=== PATIENT | female | born 1940 | race Caucasian/White ===

== ENCOUNTER 2016-07-06 11:58 | Emergency (ER) | payer OTHER ==
[~2016-07-06] VITALS: Ht 147.3 cm; Wt 36.3 kg
[2016-07-06 12:00] VITALS: BP 127/64
[2016-07-06] MEDS ORDERED: NACL 0.9% 1,000 ML IV SCH (12:04)
[2016-07-06] MEDS ORDERED: ONDANSETRON 4 MG/2 ML VIAL IVP ONE (12:05)
--- NOTE | 2016-07-06 12:14 | NUR ---
Patient ambulated to bed 04.
[2016-07-06 12:26] LABS: BASOPHILS # (AUTO) 0.2 K/uL (0.00-0.22); BASOPHILS % (AUTO) 1.9 % (0.0-2.0); EOSINOPHILS # (AUTO) 0.3 K/uL (0-0.4); EOSINOPHILS % (AUTO) 3.8 % (0.0-4.0); HEMATOCRIT 45.9 % (36-48); HEMOGLOBIN 15.1 g/dL (12.0-16.0); LYMPHOCYTES # (AUTO) 1.7 K/uL (2.5-16.5); LYMPHOCYTES % (AUTO) 19.6 % (20.5-51.1); MEAN CORPUSCULAR HEMOGLOBIN 30 pg (27-31); MEAN CORPUSCULAR HGB CONC 33 g/dL (33-37); MEAN CORPUSCULAR VOLUME 92 fL (80-94); MONOCYTES # (AUTO) 0.7 K/uL (0.8-1.0); MONOCYTES % (AUTO) 8.5 % (1.7-9.3); NEUTROPHILS # (AUTO) 5.9 K/uL (1.8-7.7); NEUTROPHILS % (AUTO) 66.2 % (42.2-75.2); PLATELET COUNT (AUTO) 230 K/uL (140-450); RED BLOOD CELL COUNT(AUTO) 4.97 MIL/uL (4.20-5.40); RED CELL DISTRIBUTION WIDTH 12.1 % (11.6-13.7); WHITE BLOOD COUNT (AUTO) 8.8 K/uL (4.8-10.8)
[2016-07-06 12:30] LABS: BILIRUBIN,URINE NEGATIVE (NEGATIVE); COLOR,URINE YELLOW (YELLOW); LEUKOCYTE ESTERASE ,URINE TRACE (NEGATIVE); NITRITE, URINE NEGATIVE (NEGATIVE); PROTEIN,URINE TRACE (NEGATIVE); UGLUCOSE NEGATIVE (NEGATIVE)
--- NOTE | 2016-07-06 12:37 | NUR ---
76/F TO ED WITH C/O CHEST PRESSURE X1 WEEK WITH ABD PAIN, NAUSEA AND VOMITING. DENIES DIARRHEA. DENIES SOB. CHEST PAIN IS NON RADAITING. PAIN 9/10. LUNGS CLEAR BILAT. HR EVEN AND REGUALR. AAOX4. VSS. NO SIGNS OF DISTRESS.
--- NOTE | 2016-07-06 12:39 | NUR ---
Dr. Shay evaluating patient at bedside.
[2016-07-06 12:45] LABS: ALANINE AMINOTRANSFERASE 22 U/L (12-78); ALBUMIN 3.8 g/dL (3.4-5.0); ALKALINE PHOSPHATASE 71 U/L (46-116); AMYLASE 58 U/L (25-115); ANION GAP 10.8 (8-16); ASPARTATE AMINOTRANSFERASE 21 U/L (15-37); CALCIUM 9.4 mg/dL (8.5-10.1); CARBON DIOXIDE 31.7 mmol/L (21-32); CHLORIDE 102 mmol/L (98-107); GLUCOSE 104 mg/dL (74-106); LIPASE 143 U/L (73-393); POTASSIUM 3.5 mmol/L (3.5-5.1); SODIUM SERUM 141 mmol/L (136-145); TOTAL BILIRUBIN 0.5 mg/dL (0.0-1.0); TOTAL PROTEIN, SERUM 7.3 g/dL (6.4-8.2); UREA NITROGEN, BLOOD 25 mg/dL (7-18)
[2016-07-06 12:52] LABS: APPEARANCE,URINE SL.HAZY (CLEAR)
[2016-07-06 12:54] LABS: BLOOD, URINE 1+ (NEGATIVE)
[2016-07-06 12:55] LABS: BACTERIA,URINE OCCASSIONAL /HPF (None Seen); WBC,URINE 0-5 (RARE) /HPF (0-5)
[2016-07-06 12:56] LABS: MUCUS,URINE 1+ /LPF (None Seen)
--- NOTE | 2016-07-06 12:56 | NUR ---
Patient going to CT via [place].
--- NOTE | 2016-07-06 13:06 | NUR ---
Patient appears to be resting comfortably in bed. Vital Signs within normal limits. Respirations even and unlabored.
--- NOTE | 2016-07-06 13:17 | NUR ---
Patient back from CT via [facility].
[2016-07-06] MEDS ORDERED: HYDROmorphone 1 MG/ML AMP IVP ONE (14:25)
[2016-07-06 14:58] VITALS: BP 124/71
--- NOTE | 2016-07-06 14:58 | NUR ---
Patient discharged with v/s stable. Written and verbal after care instructions given and explained. Patient alert, oriented and verbalized understanding of instructions. Ambulatory with steady gait. All questions addressed prior to discharge. ID band removed. Patient advised to follow up with PMD. Rx of RANITIDINE given. Patient educated on indication of medication including possible reaction and side effects. Opportunity to ask questions provided and answered.
== END 2016-07-06 14:58 | disposition home or self-care (01) ==
LOC: MED 11:58
DX: K59.00 Constipation, unspecified (principal); E46 Unspecified protein-calorie malnutrition
CPT/HCPCS: 36415; 74177; 80053; 81001; 82150; 83690; 85025; 96361; 96374; 96375; 99285; J1170; J2405; J7030; Q9967